=== PATIENT | female | born 1950 | race Caucasian/White ===

== ENCOUNTER 2018-04-14 16:18 | Emergency (ER) | payer MEDICARE ==
[~2018-04-14] VITALS: Wt 48.5 kg
[~2018-04-14 16:18] MED LIST: MOTRIN800 MG PO
== END 2018-04-14 18:06 | disposition home or self-care (01) ==
LOC: ED 16:18
DX: S92.324A Nondisplaced fracture of second metatarsal bone, right foot, initial encounter for closed fracture (principal); Z88.5 Allergy status to narcotic agent; X58.XXXA Exposure to other specified factors, initial encounter; Y93.89 Activity, other specified; Y92.89 Other specified places as the place of occurrence of the external cause; Y99.9 Unspecified external cause status

== ENCOUNTER 2025-02-25 16:23 | Inpatient (IN) | payer MEDICARE ==
[~2025-02-25] VITALS: Ht 152.4 cm; Wt 48.1 kg
[2025-02-25 16:30] VITALS: BP 154/71
[2025-02-25 16:47] LABS: ABG BASE EXCESS -3.4 mmol/L (-2.0-3.0); ABG O2 SATURATION 98.5 % (94.0-98.0); ARTERIAL BLOOD GAS PH 7.416 (7.350-7.450); ARTERIAL BLOOD GAS PO2 98.8 mmHg (83.0-108.0)
[2025-02-25 17:06] LABS: BILIRUBIN Negative (Negative); BLOOD 2+ (Negative); CLARITY Clear (Clear); COLOR Yellow (Yellow); GLUCOSE 2+ (Negative); KETONE 1+ (Negative); LEUKO ESTERASE Negative (Negative); NITRITE Negative (Negative); SPECIFIC GRAVITY 1.015 (1.001-1.030); UROBILINOGEN 0.2 E.U./dl (0.0-1.0)
[2025-02-25 17:13] LABS: URINE AMPHETAMINES Negative (1000ng/ml); URINE BARBITURATES Negative (200ng/ml); URINE BENZODIAZEPINES Negative (200ng/ml); URINE CANNABINOIDS (THC) Negative (50ng/ml); URINE COCAINE Negative (300ng/ml); URINE METHADONE Negative (300ng/ml); URINE OPIATES Negative (300ng/ml); URINE PHENCYCLIDINE Negative (25ng/ml)
[2025-02-25 17:25] LABS: BACTERIA 2+; WBC 0-2 wbc/hpf (0-5)
[2025-02-25 17:26] LABS: HEMATOCRIT 38.4 % (37.0-47.0); MANUAL DIFF REFLEX YES; MEAN CELL VOLUME 94.3 fl (81.0-99.0); MEAN CORPUSCULAR HGB 33.2 pg (27.0-31.0); MEAN CORPUSCULAR HGB CONC 35.2 g/dl (33.0-37.0); MEAN PLATELET VOLUME 9.6 fl (9.6-12.3); PLATELET COUNT AUTOMATED 310 10*3/uL (130-400); RED BLOOD COUNT 4.07 10*6/uL (4.10-5.10); RED CELL DISTRI WIDTH 14.3 % (0-14.5); WHITE BLOOD COUNT 11.2 10*3/uL (4.8-10.8)
[2025-02-25 17:41] LABS: ETHYL ALCOHOL < 3.0 mg/dl (<3)
[2025-02-25] MEDS ORDERED: Lactated Ringer's Solution 1,000 ML IV SCH (17:45)
[2025-02-25 17:56] LABS: PLATELET SUFFICIENCY NORMAL (NORMAL); TOTAL CELLS COUNTED 100 #CELLS
[2025-02-25 19:27] VITALS: BP 107/51; BP 127/59
[2025-02-25 19:40] LABS: ALKALINE PHOSPHATASE 135 U/L (46-116); BUN 12 mg/dl (9-23); CHLORIDE 97 mmol/L (98-107); POTASSIUM 4.1 mmol/L (3.4-5.1); SGPT/ALT 29 U/L (5-49); TOTAL PROTEIN 7.3 gm/dL (6.0-8.0)
[2025-02-25 19:59] LABS: CPK 2438 U/L (34-171)
[2025-02-25] MEDS ORDERED: SODIUM CHLORIDE 0.9% 1,000 ML IV ONE ×2 (20:25→20:30)
[2025-02-25] MEDS ORDERED: ACETAMINOPHEN 325 MG TAB PO PRN (22:00)
[2025-02-25] MEDS ORDERED: Ondansetron Hydrochloride 4 MG/2 ML VIAL IV PRN (22:00)
[2025-02-25] MEDS ORDERED: ACETAMINOPHEN 650 MG SUPP R PRN (22:00)
[2025-02-25] MEDS ORDERED: Albuterol Sulf/Ipratropium 3 ML VIAL NEB ONE (22:35)
[2025-02-25] MEDS ORDERED: cefTRIAXone Sodium 1 GM in SYRINGE INFUSION 10 ML IV SCH (23:05)
[2025-02-25 23:06] VITALS: BP 140/55
[2025-02-25] MEDS ORDERED: cefTRIAXone Sodium 1 GM/10 ML SYR IV ONE (23:10)
[2025-02-26] VITALS (10 sets, daily range): BP systolic 127–174; BP diastolic 58–92
[2025-02-26 00:01] LABS: BUN 10 mg/dl (9-23); CHLORIDE 100 mmol/L (98-107); POTASSIUM 4.2 mmol/L (3.4-5.1)
[2025-02-26] MEDS ORDERED: SODIUM CHLORIDE 0.9% 1,000 ML IV SCH (04:00)
[2025-02-26 05:33] LABS: ALKALINE PHOSPHATASE 106 U/L (46-116); BUN 10 mg/dl (9-23); CHLORIDE 101 mmol/L (98-107); CHOLESTEROL 146 mg/dL (<200); FREE T4 1.01 ng/dl (0.89-1.76); LDL CHOLESTEROL 56 mg/dL (9-159); POTASSIUM 3.7 mmol/L (3.4-5.1); SGPT/ALT 43 U/L (5-49); TRIGLYCERIDES 61 mg/dl (<150)
[2025-02-26 05:39] LABS: CPK 4997 U/L (34-171)
[2025-02-26 06:08] LABS: BASO % 0.1 % (0.0-1.0); EOS # 0.1 10*3/uL (0.0-0.4); EOS % 1.2 % (1.0-4.0); HEMATOCRIT 33.2 % (37.0-47.0); MEAN CELL VOLUME 96.2 fl (81.0-99.0); MEAN CORPUSCULAR HGB CONC 34.3 g/dl (33.0-37.0); MEAN PLATELET VOLUME 10.1 fl (9.6-12.3); MONO # 1.1 10*3/uL (0.1-1.0); MONO % 11.2 % (3.0-9.0); NEUT # 7.6 10*3/uL (2.3-7.9); NEUT % 80.1 % (47.0-73.0); PLATELET COUNT AUTOMATED 297 10*3/uL (130-400); RED BLOOD COUNT 3.45 10*6/uL (4.10-5.10); RED CELL DISTRI WIDTH 14.4 % (0-14.5); WHITE BLOOD COUNT 9.5 10*3/uL (4.8-10.8)
[2025-02-26 06:26] LABS: ACT PARTIAL THROMBO TIME 27.3 SECONDS (20.0-32.1)
[2025-02-26 07:29] LABS: VITAMIN D, 25-HYDROXY 6.6 ng/mL (30-100)
[2025-02-26] MEDS ORDERED: CYANOCOBALAMIN 1,000 MCG/ML VIAL IM ONE (08:40)
[2025-02-26] MEDS ORDERED: Cholecalciferol 5,000 IU CAP (125 MCG) PO SCH (10:00)
[2025-02-26] MEDS ORDERED: Enoxaparin Sodium 40 MG/0.4 ML SYR SC SCH (10:00)
[2025-02-26] MEDS ORDERED: cefTRIAXone Sodium 1 GM VIAL ONE (10:35)
[2025-02-26] MEDS ORDERED: LORazepam 2 MG/ML VIAL IV ONE (12:15)
[2025-02-26] MEDS ORDERED: LORazepam 2 MG/ML VIAL ONE (12:38)
[2025-02-27] VITALS: BP 155/86
[2025-02-27 04:00] VITALS: BP 155/86
[2025-02-27 05:31] LABS: ALKALINE PHOSPHATASE 91 U/L (46-116); BUN 8 mg/dl (9-23); CHLORIDE 102 mmol/L (98-107); POTASSIUM 2.8 mmol/L (3.4-5.1); SGPT/ALT 69 U/L (5-49); TOTAL PROTEIN 5.7 gm/dL (6.0-8.0)
[2025-02-27 05:34] LABS: CPK 4550 U/L (34-171)
[2025-02-27 06:33] LABS: BASO % 0.1 % (0.0-1.0); EOS # 0.1 10*3/uL (0.0-0.4); EOS % 0.7 % (1.0-4.0); MEAN CELL VOLUME 96.4 fl (81.0-99.0); MEAN CORPUSCULAR HGB 33.1 pg (27.0-31.0); MEAN CORPUSCULAR HGB CONC 34.4 g/dl (33.0-37.0); MEAN PLATELET VOLUME 10.3 fl (9.6-12.3); MONO # 1.4 10*3/uL (0.1-1.0); MONO % 12.4 % (3.0-9.0); NEUT # 8.6 10*3/uL (2.3-7.9); NEUT % 78.9 % (47.0-73.0); PLATELET COUNT AUTOMATED 247 10*3/uL (130-400); RED BLOOD COUNT 3.32 10*6/uL (4.10-5.10); RED CELL DISTRI WIDTH 14.6 % (0-14.5); WHITE BLOOD COUNT 10.9 10*3/uL (4.8-10.8)
[2025-02-27 08:00] VITALS: BP 177/87
[2025-02-27] MEDS ORDERED: POTASSIUM CHLORIDE IN WATER 100 ML IV SCH (08:00)
[2025-02-27] MEDS ORDERED: DEXTROSE 10 % IN WATER 250 ML DEHP.FR.BG IV ONE (08:00)
[2025-02-27] MEDS ORDERED: SODIUM CHLORIDE 0.9% 1,000 ML IV SCH (08:35)
[2025-02-27] MEDS ORDERED: Potassium Bicarbonate/Potass 25 MEQ TAB PO ONE (08:40)
[2025-02-27] MEDS ORDERED: Labetalol Hydrochloride 20 MG/4 ML SYR IV ONE (08:45)
[2025-02-27 12:00] VITALS: BP 166/77
[2025-02-27] MEDS ORDERED: Nicotine 21 MG PATCH T SCH (12:00)
[2025-02-27 13:29] LABS: BUN 6 mg/dl (9-23); CHLORIDE 101 mmol/L (98-107); POTASSIUM 3.1 mmol/L (3.4-5.1)
[2025-02-27 16:00] VITALS: BP 153/69
[2025-02-27 20:00] VITALS: BP 175/77
[2025-02-28] VITALS: BP 186/81
[2025-02-28 06:02] LABS: CHLORIDE 96 mmol/L (98-107); POTASSIUM 2.5 mmol/L (3.4-5.1)
[2025-02-28 06:09] LABS: BUN < 5 mg/dl (9-23); CPK 3931 U/L (34-171)
[2025-02-28 06:17] LABS: HEMATOCRIT 36.4 % (37.0-47.0); MEAN CORPUSCULAR HGB 32.9 pg (27.0-31.0); MEAN CORPUSCULAR HGB CONC 35.4 g/dl (33.0-37.0); MEAN PLATELET VOLUME 10.2 fl (9.6-12.3); PLATELET COUNT AUTOMATED 286 10*3/uL (130-400); RED BLOOD COUNT 3.92 10*6/uL (4.10-5.10); RED CELL DISTRI WIDTH 14.2 % (0-14.5)
[2025-02-28 06:32] LABS: MANUAL DIFF REFLEX YES; MEAN CELL VOLUME 92.9 fl (81.0-99.0)
[2025-02-28 06:54] LABS: PLATELET SUFFICIENCY NORMAL (NORMAL); TOTAL CELLS COUNTED 100 #CELLS
[2025-02-28 08:00] VITALS: BP 161/87
[2025-02-28] MEDS ORDERED: POTASSIUM CHLORIDE 20 MEQ TAB PO ONE ×2 (08:30→13:00)
[2025-02-28] MEDS ORDERED: SODIUM CHLORIDE 0.9% 1,000 ML IV SCH (08:40)
[2025-02-28] MEDS ORDERED: Losartan Potassium 25 MG TAB PO SCH (10:00)
[2025-02-28 12:00] VITALS: BP 123/80
[2025-02-28 16:00] VITALS: BP 145/78
[2025-02-28 20:00] VITALS: BP 166/86
[2025-03-01] VITALS: BP 156/97
[2025-03-01] MEDS ORDERED: TEMAZEPAM 15 MG CAP PO PRN (02:00)
[2025-03-01 06:47] LABS: BASO % 0.3 % (0.0-1.0); EOS % 0.6 % (1.0-4.0); HEMATOCRIT 38.7 % (37.0-47.0); MEAN CELL VOLUME 95.6 fl (81.0-99.0); MEAN CORPUSCULAR HGB 32.8 pg (27.0-31.0); MEAN CORPUSCULAR HGB CONC 34.4 g/dl (33.0-37.0); MONO % 14.5 % (3.0-9.0); NEUT # 4.2 10*3/uL (2.3-7.9); NEUT % 61.8 % (47.0-73.0); PLATELET COUNT AUTOMATED 336 10*3/uL (130-400); RED BLOOD COUNT 4.05 10*6/uL (4.10-5.10); RED CELL DISTRI WIDTH 14.1 % (0-14.5); WHITE BLOOD COUNT 6.8 10*3/uL (4.8-10.8)
[2025-03-01 07:08] LABS: BUN 7 mg/dl (9-23); CHLORIDE 97 mmol/L (98-107); POTASSIUM 3.1 mmol/L (3.4-5.1)
[2025-03-01 08:00] VITALS: BP 153/85
[2025-03-01] MEDS ORDERED: POTASSIUM CHLORIDE 20 MEQ TAB PO ONE ×3 (08:10→12:45)
[2025-03-01 12:00] VITALS: BP 158/76
[2025-03-01 16:00] VITALS: BP 143/90
[2025-03-01 20:00] VITALS: BP 143/87
[2025-03-01] MEDS ORDERED: Mirtazapine 15 MG TAB PO SCH (22:00)
[2025-03-01 23:55] VITALS: BP 146/90
[2025-03-02 08:00] VITALS: BP 134/74
[2025-03-02 11:09] LABS: BUN 11 mg/dl (9-23); CHLORIDE 101 mmol/L (98-107); POTASSIUM 3.8 mmol/L (3.4-5.1)
[2025-03-02 12:00] VITALS: BP 114/66
[2025-03-02] MEDS ORDERED: LOSARTAN POTASS25 M1 PO (12:16)
[2025-03-02] MEDS ORDERED: VITAMIN D3125 MC1 PO (12:16)
[2025-03-02] MEDS ORDERED: MIRTAZAPINE15 M2 PO (12:16)
[2025-03-03] MEDS ORDERED: LAMICTAL100 MG PO (12:18)
[2025-03-03] MEDS ORDERED: Ondansetron4 MG PO (12:26)
== END 2025-03-02 14:35 | DRG 917 ==
LOC: ED 16:23 → 5E 21:26 → EDHOLD 21:26 → ICCU 02-26 14:41 → 5E 02-27 12:01
PROVIDERS: Emergency Medicine; Internal Medicine; Student in an Organized Health Care Education/Training Program; ADMIT Family Medicine; ATTEND Family Medicine
DX: T50.992A Poisoning by other drugs, medicaments and biological substances, intentional self-harm, initial encounter (principal); A41.9 Sepsis, unspecified organism; G93.41 Metabolic encephalopathy; R65.20 Severe sepsis without septic shock; E87.1 Hypo-osmolality and hyponatremia; M62.82 Rhabdomyolysis; E44.0 Moderate protein-calorie malnutrition; N30.01 Acute cystitis with hematuria; F33.1 Major depressive disorder, recurrent, moderate; G40.909 Epilepsy, unspecified, not intractable, without status epilepticus; I25.10 Atherosclerotic heart disease of native coronary artery without angina pectoris; E78.5 Hyperlipidemia, unspecified; R74.01 Elevation of levels of liver transaminase levels; R73.9 Hyperglycemia, unspecified; D72.828 Other elevated white blood cell count; D64.9 Anemia, unspecified; E53.8 Deficiency of other specified B group vitamins; E55.9 Vitamin D deficiency, unspecified; E87.6 Hypokalemia; F41.1 Generalized anxiety disorder; I10 Essential (primary) hypertension; Z88.8 Allergy status to other drugs, medicaments and biological substances; Z68.20 Body mass index [BMI] 20.0-20.9, adult; Y92.89 Other specified places as the place of occurrence of the external cause